=== PATIENT | male | born 1980 | race Caucasian/White ===

== ENCOUNTER → 2020-05-06 10:48 | Outpatient (BNVA) | payer OTHER, SELFPAY | PROVIDERS: PCP Internal Medicine; Visit Provider Student in an Organized Health Care Education/Training Program | DX: Z76.89 Persons encountering health services in other specified circumstances (principal) ==

== ENCOUNTER → 2020-05-11 10:11 | Outpatient (BNVA) | payer OTHER, SELFPAY | PROVIDERS: PCP Internal Medicine; Visit Provider Internal Medicine Endocrinology, Diabetes & Metabolism ==

== ENCOUNTER 2020-05-22 08:14 | Outpatient (REF) | payer OTHER, SELFPAY ==
[2020-05-22 08:39] LABS: MANUAL DIFF FLAG NO
[2020-05-22 08:47] LABS: Basophils Percent Auto 0.5 % (0-2); Eosinophils Absolute Auto 0.1 X10*3/uL (0.0-0.4); Eosinophils Percent Auto 0.9 % (0-4); Hemoglobin 14.9 g/dl (14.0-18.0); Imm Gran Abs Auto 0.02 X10*3/uL (0.00-0.03); Imm Gran Pct Auto 0.3 % (0.0-0.4); Lymphocytes Absolute Auto 2.9 X10*3/uL (1.2-4.9); Lymphocytes Percent Auto 45.8 % (20-40); Mean Corpuscular HGB Conc 33.9 g/dl (31.0-36.0); Mean Corpuscular Hemoglobin 30.2 pg (27.0-33.0); Mean Corpuscular Volume 89.1 fL (80-98); Mean Platelet Volume 10.3 fL (9.4-12.4); Monocytes Absolute Auto 0.4 X10*3/uL (0.1-1.2); Monocytes Percent Auto 6.9 % (2-11); Neutrophils Absolute Auto 2.9 X10*3/uL (2.0-8.3); Neutrophils Percent Auto 45.6 % (45-73); Platelet Count 230 X10*3/uL (160-400); Red Blood Count 4.94 X10*6/uL (4.60-5.80); Red Cell Distribution Width 13.2 % (11.0-16.0); White Blood Count 6.4 X10*3/uL (4.8-10.8)
[2020-05-22 09:38] LABS: Alanine Aminotransferase 40 U/L (0-40); Albumin Level 4.5 g/dL (3.5-5.0); Alkaline Phosphatase 59 U/L (39-117); Anion Gap 13 (12-20); Aspartate Amino Transferase 20 U/L (5-37); Bilirubin Total 0.6 mg/dL (0.0-1.0); Blood Urea Nitrogen 14 mg/dL (9-16); Calcium 9.5 mg/dL (8.4-10.2); Carbon Dioxide 27 mmol/L (22-29); Chloride 104 mmol/L (96-108); Estimated Glomerular Filt Rate > 60; Glucose Random 91 mg/dL (60-115); Lactate Dehydrogenase 104 U/L (118-273); Potassium 4.4 mmol/L (3.3-5.1); Sodium 140 mmol/L (135-145); Total Protein 7.5 g/dL (6.5-8.0)
[2020-05-22 10:05] LABS: Erythrocyte Sedimentation Rate 5 MM/HR (0-15)
[2020-05-28 05:22] LABS: Aldolase 5.3 U/L (<=8.1)
[2020-06-02 02:06] LABS: EJ Autoantibodies NOT DETECTED (NOT DETECTED); JO-1 Antibody <1.0 NEG AI (<1.0 NEG); MI 2 Autoantibodies NOT DETECTED (NOT DETECTED); OJ Autoantibodies NOT DETECTED (NOT DETECTED); PL 12 Autoantibodies NOT DETECTED (NOT DETECTED); PL 7 Autoantibodies NOT DETECTED (NOT DETECTED)
== END 2020-05-22 08:15 | disposition home or self-care (01) ==
LOC: HO.10HDL 08:14
PROVIDERS: Visit Provider Student in an Organized Health Care Education/Training Program
DX: R74.8 Abnormal levels of other serum enzymes (principal); Z00.00 Encounter for general adult medical examination without abnormal findings
CPT/HCPCS: 36415; 80053; 82085; 82550; 83615; 83874; 85025; 85652; 86140

== ENCOUNTER 2020-06-04 14:32 | Outpatient (REF) | payer OTHER, SELFPAY ==
--- NOTE | ~2020-06-04 | XR_ITS ---
EXAMINATION: XR LUMBOSACRAL SPINE CLINICAL INFORMATION: Abnormal level of other serum enzymes COMPARISON: 01/22/2019 TECHNIQUE: Three views of the lumbosacral spine. FINDINGS: Compared to the prior study there's been no interval change. Again seen are degenerative changes predominantly at L4-L5. No fractures are seen. No bony destructive lesions. XR/XR lumbar spine 2-3V IMPRESSION: Unchanged exam demonstrating degenerative changes L4-L5
[2020-06-04 16:28] LABS: Rheumatoid Factor < 15.0 IU/mL (<15.0)
[2020-06-05 12:52] LABS: Antibody to SS-A Antigen <1.0 NEG AI (<1.0 NEG); Antibody to SS-B Antigen <1.0 NEG AI (<1.0 NEG)
[2020-06-05 14:52] LABS: Anti Nuclear Antibody Screen NEGATIVE (NEGATIVE)
[2020-06-07 22:56] LABS: Cyclic Citrullinated Peptide <16 UNITS
== END 2020-06-04 14:33 | disposition home or self-care (01) ==
LOC: HO.XRAY 14:32
PROVIDERS: PCP Internal Medicine; Visit Provider Student in an Organized Health Care Education/Training Program
DX: R74.8 Abnormal levels of other serum enzymes (principal); M79.10 Myalgia, unspecified site; Z79.899 Other long term (current) drug therapy
CPT/HCPCS: 36415; 72100; 86038; 86039; 86200; 86235; 86431

== ENCOUNTER 2020-07-16 08:00 | Outpatient (REF) | payer OTHER, SELFPAY ==
--- NOTE | 2020-07-16 08:04 | EMG_ITS ---
Right tibial and peroneal motor studies were performed. Right superficial peroneal and sural sensory studies were performed and tibial H-reflex was obtained. Paraspinal muscles and many limb muscles were tested with a needle. IMPRESSION: 1. 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 2. No evidence of generalized neuropathy or radiculopathy or myopathy. MD PEEWEE Skaggs/IVYL / [id number]
== END 2020-07-16 08:01 | disposition home or self-care (01) ==
LOC: HO.NEURO 08:00
PROVIDERS: Visit Provider Student in an Organized Health Care Education/Training Program
DX: R74.8 Abnormal levels of other serum enzymes (principal)
CPT/HCPCS: 95886; 95909

== ENCOUNTER → 2020-07-24 10:49 | Outpatient (BNVA) | payer OTHER, SELFPAY | PROVIDERS: PCP Internal Medicine; Visit Provider Student in an Organized Health Care Education/Training Program ==

== ENCOUNTER → 2020-08-21 11:23 | Outpatient (BNVA) | payer OTHER, SELFPAY | PROVIDERS: PCP Internal Medicine; Visit Provider Surgery ==

== ENCOUNTER → 2020-09-11 08:09 | Outpatient (BNVA) | payer OTHER, SELFPAY | PROVIDERS: PCP Internal Medicine; Visit Provider Student in an Organized Health Care Education/Training Program ==

== ENCOUNTER 2020-09-29 08:19 | Outpatient (REF) | payer OTHER, SELFPAY ==
--- NOTE | ~2020-09-29 | XR_ITS ---
EXAMINATION: XR CERVICAL SPINE CLINICAL INFORMATION: Abnormal levels of other serum enzymes. COMPARISON: None TECHNIQUE: 3 views of the cervical spine were obtained. FINDINGS: There is normal cervical lordosis. The vertebral bodies are normal in height. There is no vertebral compression, spondylolisthesis, destructive process, or prevertebral soft tissue swelling. The odontoid appears intact. There are mild degenerative disc changes at C5-C6 with borderline disc narrowing and borderline anterior and posterior vertebral spurring. No cervical rib. No erosive change. XR/XR cervical spine 2V IMPRESSION: Borderline degenerative disc changes C5-C6.
--- NOTE | ~2020-09-29 | XR_ITS ---
EXAMINATION: XR SHOULDER, RIGHT XR SHOULDER, LEFT CLINICAL INFORMATION: R74.8 - Abnormal levels of other serum enzymes COMPARISON: None TECHNIQUE: Each shoulder is imaged in 4 views. There are a total of 8 views. FINDINGS: Right: There is no fracture or dislocation or destructive process. The bony mineralization appears normal. The glenohumeral and acromioclavicular joints are unremarkable. There is no erosive change. No visible rotator cuff calcifications. Left: There is no fracture or dislocation or destructive process. The bony mineralization appears normal. The glenohumeral and acromioclavicular joints are unremarkable. There is no erosive change. No visible rotator cuff calcifications. XR/XR shoulder RT min 2V IMPRESSION: Unremarkable bilateral shoulders.
--- NOTE | ~2020-09-29 | MR_ITS ---
EXAMINATION: MR SHOULDER WITHOUT AND WITH CONTRAST, LEFT CLINICAL INFORMATION: Left shoulder pain. Decreased range of motion. Superior/posterior pain. Myositis. COMPARISON: Left shoulder radiographs dated 09/29/2020 TECHNIQUE: MRI of the shoulder was performed before and after the intravenous administration of 8 mL Gadavist on a high-field scanner. FINDINGS: ROTATOR CUFF: Mild supraspinatus and infraspinatus tendinosis without a measurable tendon defect. No muscle atrophy or fatty infiltration. No abnormal signal within the rotator cuff musculature. BICEPS: Normal. CORACOACROMIAL ARCH: The undersurface of the acromion is curved with tiny lateral subacromial spurs. Mild acromioclavicular osteoarthritis. LABRUM/CAPSULE: Normal. GLENOHUMERAL JOINT/MARROW: Normal. MR/MR shoulder LT wo/w con IMPRESSION: 1. Mild supraspinatus and infraspinatus tendinosis without a measurable tendon defect. 2. Mild acromioclavicular osteoarthritis with tiny lateral subacromial spurs. 3. No soft tissue mass or fluid collection. No abnormal enhancement. No evidence of acute myositis.
--- NOTE | ~2020-09-29 | XR_ITS ---
EXAMINATION: XR SHOULDER, RIGHT XR SHOULDER, LEFT CLINICAL INFORMATION: R74.8 - Abnormal levels of other serum enzymes COMPARISON: None TECHNIQUE: Each shoulder is imaged in 4 views. There are a total of 8 views. FINDINGS: Right: There is no fracture or dislocation or destructive process. The bony mineralization appears normal. The glenohumeral and acromioclavicular joints are unremarkable. There is no erosive change. No visible rotator cuff calcifications. Left: There is no fracture or dislocation or destructive process. The bony mineralization appears normal. The glenohumeral and acromioclavicular joints are unremarkable. There is no erosive change. No visible rotator cuff calcifications. XR/XR shoulder LT min 2V IMPRESSION: Unremarkable bilateral shoulders.
[2020-09-29 08:53] LABS: MANUAL DIFF FLAG NO
[2020-09-29 09:05] LABS: Basophils Percent Auto 0.5 % (0-2); Eosinophils Percent Auto 0.6 % (0-4); Hematocrit 42.8 % (42-52); Hemoglobin 14.7 g/dl (14.0-18.0); Imm Gran Abs Auto 0.02 X10*3/uL (0.00-0.03); Imm Gran Pct Auto 0.3 % (0.0-0.4); Lymphocytes Absolute Auto 2.2 X10*3/uL (1.2-4.9); Lymphocytes Percent Auto 34.7 % (20-40); Mean Corpuscular HGB Conc 34.3 g/dl (31.0-36.0); Mean Corpuscular Hemoglobin 30.3 pg (27.0-33.0); Mean Corpuscular Volume 88.2 fL (80-98); Mean Platelet Volume 10.6 fL (9.4-12.4); Monocytes Absolute Auto 0.4 X10*3/uL (0.1-1.2); Monocytes Percent Auto 6.3 % (2-11); Neutrophils Absolute Auto 3.7 X10*3/uL (2.0-8.3); Neutrophils Percent Auto 57.6 % (45-73); Platelet Count 239 X10*3/uL (160-400); Red Blood Count 4.85 X10*6/uL (4.60-5.80); Red Cell Distribution Width 12.8 % (11.0-16.0); White Blood Count 6.4 X10*3/uL (4.8-10.8)
[2020-09-29 09:20] LABS: Cholesterol 108 mg/dL; HDL Cholesterol 37 mg/dL; LDL Cholesterol Calculated 57 mg/dl; Triglycerides 73 mg/dL
[2020-09-29 09:28] LABS: Glucose Urine UA NEG (NEG); Leukocyte Esterase Urine NEG (NEG); Nitrite Urine NEG (NEG); PH 6.5 (5.0-8.0); Urine Blood 1+ (NEG); Urine Ketones NEG (NEG); Urine Protein NEG (NEG-TRACE)
[2020-09-29 09:33] LABS: Appearance Urine CLEAR; Color Urine YELLOW
[2020-09-29 09:41] LABS: Mucus Urine TRACE /LPF; WBC Urine 0-2 /HPF (0-4)
[2020-09-29 09:44] LABS: Vitamin D 25-OH Total 37.6 ng/mL (>30)
[2020-09-30 08:16] LABS: LDL Cholesterol Direct 51 mg/dL (<100)
[2020-09-30 14:27] LABS: Calcium (PTHI) 9.3 mg/dL (8.6-10.3); PTHI 39 pg/mL (14-64)
== END 2020-09-29 08:20 | disposition home or self-care (01) ==
LOC: HO.MRI 08:19
PROVIDERS: Internal Medicine; PCP Internal Medicine; Visit Provider Student in an Organized Health Care Education/Training Program
DX: M62.82 Rhabdomyolysis (principal); M60.9 Myositis, unspecified; R74.8 Abnormal levels of other serum enzymes; E21.3 Hyperparathyroidism, unspecified; E55.9 Vitamin D deficiency, unspecified; E78.5 Hyperlipidemia, unspecified
CPT/HCPCS: 36415; 72040; 73030; 73223; 80061; 81001; 82306; 82550; 83721; 83970; 85025; A9585

== ENCOUNTER 2022-06-27 18:11 | Outpatient (REF) | payer OTHER, SELFPAY ==
--- NOTE | ~2022-06-27 | US_ITS ---
EXAMINATION: US ABDOMEN LIMITED CLINICAL INFORMATION: Right upper quadrant pain. COMPARISON: CT abdomen and pelvis with contrast for 05/30/2016 TECHNIQUE: Real-time imaging of the right upper quadrant abdominal viscera. FINDINGS: PANCREAS: Normal. LIVER: Normal. The liver is normal in size. The liver contour is normal. Parenchymal echogenicity is normal. No focal hepatic lesion. There is no intrahepatic biliary duct dilatation seen. GALLBLADDER: Normal. The gallbladder is physiologically distended without evidence of stones, sludge, polyps, wall thickening or pericholecystic fluid. COMMON BILE DUCT: Normal in caliber measuring 0.38/0.4 cm in diameter. RIGHT KIDNEY: There is an anechoic cyst in midpole measuring 0.7 x 0.8 x 0.7 cm. No hydronephrosis. No renal calculi or focal parenchymal lesions. The kidney measures 11.0 cm in maximum dimension. FREE FLUID: None. US/US abdomen limited IMPRESSION: There is anechoic cyst in the midpole measuring 0.7 x 0.8 x 0.7 cm. Visualized pancreas, liver and gallbladder is unremarkable.
== END 2022-06-27 18:12 | disposition home or self-care (01) ==
LOC: HO.US 18:11
PROVIDERS: Visit Provider Family Medicine Adult Medicine
DX: R10.9 Unspecified abdominal pain (principal)
CPT/HCPCS: 76705

== ENCOUNTER 2022-07-05 12:17 | Outpatient (REF) | payer OTHER, SELFPAY ==
[2022-07-05 13:56] LABS: Hematocrit 44.8 % (42.0-52.0); Hemoglobin 15.2 g/dl (14.0-18.0); Mean Corpuscular HGB Conc 33.9 g/dl (31.0-36.0); Mean Corpuscular Volume 88.5 fL (80.0-98.0); Mean Platelet Volume 11.2 fL (9.4-12.4); Platelet Count 258 X10*3/uL (160-400); Red Blood Count 5.06 X10*6/uL (4.60-5.80); Red Cell Distribution Width 13.2 % (11.0-16.0); White Blood Count 6.9 X10*3/uL (4.8-10.8)
[2022-07-05 13:57] LABS: Appearance Urine Clear; Color Urine Yellow; Glucose Urine UA Negative (Negative); Leukocyte Esterase Urine Negative (Negative); Nitrite Urine Negative (Negative); PH 6.5 (5.0-9.0); UMIC TRIGGER UA YES; Urine Blood Trace (Negative); Urine Ketones Negative (Negative); Urine Protein Negative (Neg-Trace)
[2022-07-05 14:01] LABS: Bacteria Urine None Seen (None Seen); Hyaline Casts Urine 0-2 /LPF (0-2); Squamous Epithelial Cell Urine 0-2 /HPF (0-2); WBC Urine 0-5 /HPF (0-5)
[2022-07-05 14:08] LABS: INTERNATIONAL NORM RATIO 1.2 (0.9-1.1); Prothrombin Time 13.9 SEC (10.0-13.1)
[2022-07-05 17:57] LABS: Alanine Aminotransferase 15 U/L (0-40); Albumin Level 4.5 g/dL (3.5-5.0); Alkaline Phosphatase 72 U/L (39-117); Anion Gap 16 (12-20); Aspartate Amino Transferase 15 U/L (5-37); Bilirubin Total 0.7 mg/dL (0.0-1.0); Blood Urea Nitrogen 12 mg/dL (9-16); Calcium 9.6 mg/dL (8.4-10.2); Carbon Dioxide 26 mmol/L (22-29); Chloride 104 mmol/L (96-108); Cholesterol 109 mg/dL; Estimated Glomerular Filt Rate > 60; Glucose Random 85 mg/dL (60-115); HDL Cholesterol 52 mg/dL; LDL Cholesterol Calculated 47 mg/dl; Potassium 4.1 mmol/L (3.3-5.1); Sodium 142 mmol/L (135-145); Total Protein 7.4 g/dL (6.5-8.0); Triglycerides 50 mg/dL
[2022-07-05 18:13] LABS: TSH reflex Free T4 0.85 uIU/mL (0.32-4.0)
[2022-07-07 03:33] LABS: LDL Cholesterol Direct 42 mg/dL (<100)
[2022-07-09 14:28] LABS: Aldolase 4.6 U/L (<=8.1)
== END 2022-07-05 12:18 | disposition home or self-care (01) ==
LOC: HO.LAB 12:17
PROVIDERS: PCP Internal Medicine; Visit Provider Nurse Practitioner Family
DX: Z01.812 Encounter for preprocedural laboratory examination (principal); Z13.29 Encounter for screening for other suspected endocrine disorder; Z13.0 Encounter for screening for diseases of the blood and blood-forming organs and certain disorders involving the immune mechanism; Z83.49 Family history of other endocrine, nutritional and metabolic diseases
CPT/HCPCS: 36415; 80053; 80061; 81001; 82085; 82550; 83721; 83874; 84443; 85027; 85610

== ENCOUNTER 2022-07-12 08:50 | Day surgery (SDC) | payer OTHER, SELFPAY ==
[2022-07-05 11:54] VITALS: BP 156/84; PULSE 55; RESP 16; O2SAT 98
[2022-07-05 11:58] VITALS: BMI 26.0
--- NOTE | 2022-07-05 12:12 | P.CONAN_ITS ---
HPI - Anesthesia Eval Consult details Narrative: 42yo M for Colonoscopy PCP cleared Hx myositis/rhabdo r/t statins, resolved after med change [facility] Active Problems Active Problems: All Active Problems (Updated 03/27/22 @ 17:58 by Augusto Erickson MD) Myositis (Acute) Myopathy (Acute) Familial hypercholesterolemia (Acute) History of primary hyperparathyroidism (Acute) Elevated creatine kinase level (Acute) Hyperparathyroidism (Acute) Vitamin D deficiency (Acute) Rhabdomyolysis (Acute) Past Medical History Medical History Elevated creatine kinase level History of primary hyperparathyroidism Hyperparathyroidism Peroneal neuropathy Rhabdomyolysis Vitamin D deficiency Family History Family History Father Hypertension Mother Hypertension Maternal Uncle CAD (coronary artery disease) CVD (cardiovascular disease) Family history of problems with anesthesia: No Surgical History Surgical History Hx of arthroscopy Hx of partial thyroidectomy History of Problems with Anesthesia: No Social History Social History (Updated 09/11/20 @ 08:19 by Jamal Whitney LPN) Household Members: Spouse and Children Housing: House Are you a primary manager care management to a significant other at home: No Do you presently have visiting nurse or other home services: No Alcohol intake: current Alcohol intake frequency: does not drink Patient Tobacco Use Status: Never used Tobacco e-Cigarette/Vaping Use: Never Used service: No Current occupational status: employed Cognitive needs: No Hearing needs: No Vision needs: No Narrative Narrative: No recent illness >4 mets with high activity Meds Allergies Allergy/AdvReac Type Severity Reaction Status Date / Time atorvastatin Allergy Intermediate Myalgia Verified 07/05/22 12:01 Home Medications Medication Instructions Recorded Confirmed Last Taken Type cholecalciferol (vitamin D3) 25 25 mcg PO DAILY 05/06/20 07/05/22 Unknown History mcg (1,000 unit) capsule evolocumab 140 mg/mL subcutaneous 1 syringe subcut Q2W 09/08/20 07/05/22 Unknown History pen injector (Farhad Beal) Exam Exam Date and Time: July 05, 2022 1212 Height,Weight and Vital Signs: Height 5 ft 6 in Weight 73.2 kg Last Vital Signs Pulse 55 07/05/22 11:54 Resp 16 07/05/22 11:54 BP 156/84 H 07/05/22 11:54 Pulse Ox 98 07/05/22 11:54 O2 Del Method Room Air 07/05/22 11:54 Assessment and Plan Assessment Anesthesia Assessment: Anesthesia Plan Discussed and PAT Visit Final Anesthetic Review Family History of Problems with Anesthesia: No History of Problems with Anesthesia: No
[2022-07-12 09:03] VITALS: BP 142/86; PULSE 76; RESP 16; TEMP 36.5; O2SAT 97
[2022-07-12] MEDS: Lactated Ringers 1,000 ML 100 ML IVCONT (09:22)
--- NOTE | 2022-07-12 09:56 | P.CONAN_ITS ---
[facility] Active Problems Active Problems: All Active Problems (Updated 03/27/22 @ 17:58 by Augusto Erickson MD) Myositis (Acute) Myopathy (Acute) Familial hypercholesterolemia (Acute) History of primary hyperparathyroidism (Acute) Elevated creatine kinase level (Acute) Hyperparathyroidism (Acute) Vitamin D deficiency (Acute) Rhabdomyolysis (Acute) Past Medical History Medical History Elevated creatine kinase level History of primary hyperparathyroidism Hyperparathyroidism Peroneal neuropathy Rhabdomyolysis Vitamin D deficiency Family History Family History Father Hypertension Mother Hypertension Maternal Uncle CAD (coronary artery disease) CVD (cardiovascular disease) Family history of problems with anesthesia: No Surgical History Surgical History Hx of arthroscopy Hx of partial thyroidectomy History of Problems with Anesthesia: No Social History Social History (Updated 09/11/20 @ 08:19 by Jamal Whitney LPN) Household Members: Spouse and Children Housing: House Are you a primary health careers instructor to a significant other at home: No Do you presently have visiting nurse or other home services: No Alcohol intake: current Alcohol intake frequency: does not drink Patient Tobacco Use Status: Never used Tobacco e-Cigarette/Vaping Use: Never Used Use of substances other than those prescribed or required for medical reasons: No Have you been hit, kicked, punched, or otherwise hurt by someone within the past year? If so, by whom?: No Are you DNR?: No Advance Directives: No Advance Directives Information Provided: Yes Advance Directives on File: No Recently lost weight without trying: No service: No Current occupational status: employed Cognitive needs: No Hearing needs: No Vision needs: No Meds Allergies Allergy/AdvReac Type Severity Reaction Status Date / Time atorvastatin Allergy Intermediate Myalgia Verified 07/05/22 12:01 Active Medications: Current Medications Lactated Ringer's (Lr) 1,000 mls @ 100 mls/hr IVCONT .Q10H TRI Last Admin: 07/12/22 09:22 Dose: 100 mls/hr Home Medications Medication Instructions Recorded Confirmed Last Taken Type cholecalciferol (vitamin D3) 25 25 mcg PO DAILY 05/06/20 07/05/22 Unknown History mcg (1,000 unit) capsule evolocumab 140 mg/mL subcutaneous 1 syringe subcut Q2W 09/08/20 07/05/22 Unknown History pen injector (Farhad Beal) Exam Exam Date and Time: July 12, 2022 0956 Height,Weight and Vital Signs: Height 5 ft 6 in Weight 73.2 kg Last Vital Signs Temp 97.7 F 07/12/22 09:03 Pulse 76 07/12/22 09:03 Resp 16 07/12/22 09:03 BP 142/86 H 07/12/22 09:03 Pulse Ox 97 07/12/22 09:03 O2 Del Method Room Air 07/12/22 09:03 Airway Mallampati Class: II TM Dist: >3cm Neck ROM: Full Assessment and Plan Assessment Anesthesia Assessment: Anesthesia Plan Discussed and Chart Reviewed Final Anesthetic Review Family History of Problems with Anesthesia: No History of Problems with Anesthesia: No NPO: Yes ASA Class: II Final Preanesthetic Review: No Changes in Pt Med Stat, Meds/Allgs Chart Reviewed, Consent Obtained/Reviewed and Anes Risks/Benef Reviewed Patient Risk: Low Procedure Risk: Low Anesthetic Plan Anesthetic Plan: MAC: Disposition: Standard PACU
--- NOTE | 2022-07-12 10:07 | MHC.SHP ---
Pre-Procedural Eval Section A Date of Service: 07/12/22 Section B Chief Complaint: screening Details of Present Illness: sister with CRC aged 52, he has no symptoms Relevant Family History (Specify if Yes): Yes Relevant Social History: None Present Medications: see Short Stay Collaborative assessment Medical History: Significant History (Elevated creatine kinase level History of primary hyperparathyroidism Hyperparathyroidism Peroneal neuropathy Rhabdomyolysis Vitamin D deficiency) History of Previous Operations: Relevant previous surgery/procedure and date(s) (Hx of arthroscopy Hx of partial thyroidectomy) Allergies: Allergies Allergy/AdvReac Type Severity Reaction Status Date / Time atorvastatin Allergy Intermediate Myalgia Verified 07/05/22 12:01 Review of Systems Sugical H&P ROS: Negative: Constitution, Cardiovascular, Respiratory, Neurological, Psychiatric, Hem-Onc, Allergic/Immunologic, Gastrointestinal, Genitourinary, Musculoskeletal, Integumentary, Endocrine and Eyes/Ears/Nose/Throat Exam Surgical H&P Exam: Normal: HEENT, Normal: Heart, Normal: Lungs, Normal: Extremities, Normal: Abdomen, Normal: Skin and Normal: Neurological Plan Diagnosis/Plan: Unchanged I have reviewed the history and physical and performed a pertinent physical examination on my patient. No changes have occurred unless specified. Time Spent With Patient Time: Total time managing care of this patient today ____ minutes.
--- NOTE | 2022-07-12 10:08 | P.OP_ITS ---
Operative Note Operative Note Date of Service: 07/12/22 Narrative: Operative Information Procedure Description: Colonoscopy Indication: FH of CRC, he has no symptoms, screening Anesthesia: MAC COLONOSCOPY Instrument: Olympus variable stiffness pediatric scope 190L Colonoscopy Monitoring: Vital signs and clinical assessment, continuous EKG monitoring, Pulse oximetry, Carbon Dioxide monitoring and blood pressure monitoring were done throughout the procedure. Colon withdrawal time was 8 minutes. Procedure: The patient was placed in the left lateral decubitis position and pre-procedure medications were administered. After a digital rectal examination of the ano-rectum, the video colonoscope was inserted into the rectum and advanced through the colon to the cecum/TI. The colonoscope was slowly withdrawn in a retrograde panoramic fashion and the colon mucosa was carefully examined including a retroflexed view of the rectum. Findings and interventions are described below. Procedure Difficulty: easy Findings: Terminal Ileum-normal Cecum:normal Ascending Colon: normal Transverse Colon -normal Descending Colon:normal Sigmoid Colon: normal Rectum: Retroflexion with small internal hemorrhoids, grade I Anorectum - normal Colon preparation: [place] Bowel Preparation Scale Right colon; 3 Transverse colon: 3 Left colon; 3 (0 = Unprepared colon segment with mucosa not seen due to solid stool that cannot be cleared. 1 = Portion of mucosa of the colon segment seen, but other areas of the colon segment not well seen due to staining, residual stool and/or opaque liquid. 2 = Minor amount of residual staining, small fragments of stool and/or opaque liquid, but mucosa of colon segment seen well. 3 = Entire mucosa of colon segment seen well with no residual staining, small fragments of stool or opaque liquid) Impression and Post Procedure Diagnosis: internal hemorrhoids Plan: High fiber diet leaflet Avoid straining at stool, epsom salts and sitz bath, anusol supps or cream Repeat Colonoscopy in 5 years due to FH of CRC in sister or earlier if clinically indicated Above findings were reviewed with the patient and relevant handouts were provided if indicated.
--- NOTE | 2022-07-12 10:38 | P.CONAN_ITS ---
HPI - Anesthesia Eval Consult details Narrative: screening [facility] Active Problems Active Problems: All Active Problems (Updated 03/27/22 @ 17:58 by Augusto Erickson MD) Myositis (Acute) Myopathy (Acute) Familial hypercholesterolemia (Acute) History of primary hyperparathyroidism (Acute) Elevated creatine kinase level (Acute) Hyperparathyroidism (Acute) Vitamin D deficiency (Acute) Rhabdomyolysis (Acute) Past Medical History Medical History Elevated creatine kinase level History of primary hyperparathyroidism Hyperparathyroidism Peroneal neuropathy Rhabdomyolysis Vitamin D deficiency Family History Family History Father Hypertension Mother Hypertension Maternal Uncle CAD (coronary artery disease) CVD (cardiovascular disease) Family history of problems with anesthesia: No Surgical History Surgical History Hx of arthroscopy Hx of partial thyroidectomy History of Problems with Anesthesia: No Social History Social History (Updated 09/11/20 @ 08:19 by Jamal Whitney LPN) Household Members: Spouse and Children Housing: House Are you a primary veterinarian laboratory animal care to a significant other at home: No Do you presently have visiting nurse or other home services: No Alcohol intake: current Alcohol intake frequency: does not drink Patient Tobacco Use Status: Never used Tobacco e-Cigarette/Vaping Use: Never Used Use of substances other than those prescribed or required for medical reasons: No Have you been hit, kicked, punched, or otherwise hurt by someone within the past year? If so, by whom?: No Are you DNR?: No Advance Directives: No Advance Directives Information Provided: Yes Advance Directives on File: No Recently lost weight without trying: No service: No Current occupational status: employed Cognitive needs: No Hearing needs: No Vision needs: No Meds Allergies Allergy/AdvReac Type Severity Reaction Status Date / Time atorvastatin Allergy Intermediate Myalgia Verified 07/05/22 12:01 Active Medications: Current Medications Lactated Ringer's (Lr) 1,000 mls @ 100 mls/hr IVCONT .Q10H TRI Last Admin: 07/12/22 09:22 Dose: 100 mls/hr Home Medications Medication Instructions Recorded Confirmed Last Taken Type cholecalciferol (vitamin D3) 25 25 mcg PO DAILY 05/06/20 07/05/22 Unknown History mcg (1,000 unit) capsule evolocumab 140 mg/mL subcutaneous 1 syringe subcut Q2W 09/08/20 07/05/22 Unknown History pen injector (Farhad Beal) Exam Exam Date and Time: July 12, 2022 1038 Height,Weight and Vital Signs: Height 5 ft 6 in Weight 73.2 kg Last Vital Signs Temp 97.7 F 07/12/22 09:03 Pulse 76 07/12/22 09:03 Resp 16 07/12/22 09:03 BP 142/86 H 07/12/22 09:03 Pulse Ox 97 07/12/22 09:03 O2 Del Method Room Air 07/12/22 09:03 Airway Neck ROM: Full Heart: rr Lungs: cta Assessment and Plan Assessment Anesthesia Assessment: Anesthesia Plan Discussed, Smoking Cess. Discussed and Chart Reviewed Final Anesthetic Review Family History of Problems with Anesthesia: No History of Problems with Anesthesia: No NPO: Yes ASA Class: I Final Preanesthetic Review: No Changes in Pt Med Stat, Meds/Allgs Chart Reviewed, Consent Obtained/Reviewed and Anes Risks/Benef Reviewed Patient Risk: Low Procedure Risk: Low Anesthetic Plan Anesthetic Plan: MAC: Disposition: Standard PACU
[2022-07-12 10:52] VITALS: BP 104/60; PULSE 63; RESP 13; TEMP 36.3; O2SAT 95
[2022-07-12 11:07] VITALS: BP 117/75; PULSE 64; RESP 20; TEMP 36.2; O2SAT 98
== END 2022-07-12 12:04 | disposition home or self-care (01) ==
PROVIDERS: PCP Internal Medicine; Visit Provider Internal Medicine Gastroenterology
PROC: 0DJD8ZZ Inspection of Lower Intestinal Tract, Via Natural or Artificial Opening Endoscopic (ICD-10-PCS; CPT 45378; principal; 2022-07-12 09:50)
DX: Z12.11 Encounter for screening for malignant neoplasm of colon (principal); Z80.0 Family history of malignant neoplasm of digestive organs; K64.0 First degree hemorrhoids; E55.9 Vitamin D deficiency, unspecified; E21.0 Primary hyperparathyroidism; E89.0 Postprocedural hypothyroidism; R79.89 Other specified abnormal findings of blood chemistry; M62.82 Rhabdomyolysis; G62.9 Polyneuropathy, unspecified; Z79.899 Other long term (current) drug therapy; Z88.8 Allergy status to other drugs, medicaments and biological substances
CPT/HCPCS: 45378